=== PATIENT | female | born 2000 | race Hispanic/Latino ===

== ENCOUNTER 2024-03-29 22:08 | Emergency (ER) | payer SELFPAY ==
--- OUTSIDE RECORDS SUMMARY | 2024-03-29 23:26 | XMS REPORT | Continuity of Care Document ---
Author Name Unknown Address [address] [place] [address] thconnect Address [address] [place] [address] [phone] [place] [address] Care Team Providers Care Gas Blender Name Role Phone PCP, PATIENT DOES NOT HAVE A Primary Care Physic karina Unavailable RAVINDER LOPEZ Attending Clinician Unavailable Payers Payer Name Policy Type Policy Number Effective Date Expirati on Date Source [facility] [id number] 2017 00:00:00 Allergies, Adverse Reactions, Alerts Allergy Name Allergy Type Status Severity Reaction(s) Onset Date Inactive Date Treating Clinician Comments Source NO KNOWN ALLERGIE S Drug Class Active [facility] Encounters Start Date/Time End Date/Time Encounter Type Admission Type Attending Clinicians Care Facility Care Department Encounter ID Source 2020-10-07 11:20:00 2020-10-07 09:32:19 Outpatient [facility]AVINDER UP [facility] [id number] [facility] 2020-09-09 11:20:00 2020-09-09 11:20:00 Outpatient [facility] [id number] [facility]
--- NOTE | 2024-03-30 01:09 | EDPHYS ---
Physician Documentation [facility] Name: Patricia Silverio Age: 24 yrs Sex: Female : 2000 Arrival Date: 03/29/2024 Time: 22:08 Bed IW6 Private MD: ED Physician Saeed Espinoza HPI: 03/29 23:00 This 24 yrs old Female presents to ER via Ambulatory with complaints of Knee cp Pain - right. 23:00 The patient presents with an injury, pain, that is acute. cp 23:00 The complaints affect the right knee. Context: the patient can fully bear weight, the cp patient is able to ambulate, with mild difficulty, pain and felt pop while exercising today. Onset: The symptoms/episode began/occurred today. Associated signs and symptoms: The patient has no apparent associated signs or symptoms. Historical: - Allergies: 22:57 No Known Allergies; ha1 - PMHx: 22:57 scoliosis; ha1 - Immunization history:: Adult Immunizations up to date. - Infectious Disease History:: Denies. - Social history:: Smoking status: Patient denies any tobacco usage or history of. ROS: 23:05 MS/extremity: Positive for pain, tenderness, of the right knee, Negative for decreased cp range of motion, deformity, 23:05 Constitutional: Negative for body aches, chills, fever, cp 23:05 Neck: Negative for pain with movement, pain at rest, 23:05 Back: Negative for pain at rest, pain with movement, 23:05 Skin: Negative for cellulitis, rash, 23:05 All other systems are negative, Exam: 23:10 Constitutional: The patient appears in no acute distress, alert, awake, well developed, cp well nourished, 23:10 Respiratory: the patient does not display signs of respiratory distress, cp 23:10 Abdomen/GI: Exam negative for discomfort, distension, guarding, Inspection: abdomen appears normal, 23:10 Back: pain, is absent, ROM is normal, 23:10 Musculoskeletal/extremity: Extremities: noted in the right knee: pain, mild swelling and tenderness noted anterior knee below patella and medial side of patella, There is no evidence of decreased ROM, erythema, ROM: limited passive range of motion due to pain, in the right knee, Perfusion: the extremity is normally perfused throughout, Sensation intact. 23:10 Neuro: Gait: is steady, Vital Signs: 22:40 BP 136 / 97; Pulse 94; Resp 16 S; Temp 97.2; Pulse Ox 100% ; Weight 69.85 kg; Height 5 ha1 ft. 3 in. ; Pain 5/10; 22:40 Body Mass Index 27.28 (69.85 kg, 160.02 cm) ha1 22:40 Pain Scale: Adult ha1 MDM: 22:55 Medical Screening Exam initiated cp 03/30 01:08 Data reviewed: vital signs, nurses notes, and as a result, I will discharge patient. cp 01:08 Differential diagnosis: tendonitis, sprain, strain, fracture. Refusal of service: The cp patient/guardian displays adequate decision making capability and despite a detailed discussion of alternatives, benefits, risks, and consequences refuses: all X-rays. Administered Medications: 01:25 Not Given (Physician Discretion): [id number] mg PO once; may give if not ha1 Disposition: 20:40 Co-signature as Attending Physician, Saeed Espinoza MD I agree with the assessment sp4 and plan of care. I reviewed the patient's care provided by the Advanced Practice Provider and agree with the diagnosis and treatment plan. 03/31 00:27 Chart complete. cp Disposition Summary: 03/30/24 01:09 Discharge Ordered Notes: Location: Home cp Problem: new cp Symptoms: are unchanged cp Condition: Stable cp Diagnosis - Pain in right knee cp Followup: cp - With: Jovon Barcenas MD - When: 5 - 6 days - Reason: right knee pain Discharge Instructions: - Discharge Summary Sheet cp - Elastic Bandage and RICE Therapy cp - How to Use a Knee Brace cp - Acute Knee Pain, Adult cp Forms: - Medication Reconciliation Form cp - Antibiotic Education cp - Prescription Opioid Use cp - Patient Portal Instructions cp - Leadership Thank You Letter cp Prescriptions: - Ibuprofen 800 mg Oral Tablet - take 1 tablet ORAL route every 8 hours As needed take with food; 30 tablet; cp Refills: 0, Product Selection Permitted Signatures: Dispatcher [employer] EDMS Sesar Austin PA PA cp Ayala, Heidy, RN RN 1 Saeed Espinoza MD MD sp4 Corrections: (The following items were deleted from the chart) 03/29 22:56 22:56 Knee Right 3 View+RAD.RAD.BRZ ordered. EDMS EDMS 03/30 01:25 03/29 22:56 Crutches ordered. cp ha1
--- NOTE | 2024-03-30 01:09 | ER ---
Nurse's Notes [facility] Name: Patricia Silverio Age: 24 yrs Sex: Female : 2000 Arrival Date: 03/29/2024 Time: 22:08 Bed IW6 Private MD: Diagnosis: Pain in right knee Presentation: 03/29 22:40 Chief complaint: Patient states: right knee pain after working out. ha1 22:40 Coronavirus screen: Vaccine status: Patient reports being unvaccinated. Ebola Screen: ha1 No symptoms or risks identified at this time. Initial Sepsis Screen: Does the patient meet any 2 criteria? No. Patient's initial sepsis screen is negative. Does the patient have a suspected source of infection? No. Patient's initial sepsis screen is negative. Risk Assessment: Do you want to hurt yourself or someone else? Patient reports no desire to harm self or others. Onset of symptoms was March 29, 2024. 22:40 Method Of Arrival: Ambulatory ha1 22:40 Acuity: LASHANDA 4 ha1 Triage Assessment: 22:57 General: Appears uncomfortable, Behavior is calm, cooperative. Pain: Complains of pain ha1 in lateral aspect of right knee Pain does not radiate. Pain currently is 5 out of 10 on a pain scale. Quality of pain is described as aching, Pain began suddenly. Neuro: Level of Consciousness is awake, alert, obeys commands, Oriented to person, place, time, situation. Cardiovascular: Patient's skin is warm and dry. Respiratory: Airway is patent Respiratory effort is even, unlabored, Respiratory pattern is regular, symmetrical. Historical: - Allergies: 22:57 No Known Allergies; ha1 - PMHx: 22:57 scoliosis; ha1 - Immunization history:: Adult Immunizations up to date. - Infectious Disease History:: Denies. - Social history:: Smoking status: Patient denies any tobacco usage or history of. Screenin/25 00:00 Abuse screen: Denies threats or abuse. Denies injuries from another. Nutritional ha1 screening: No deficits noted. Tuberculosis screening: No symptoms or risk factors identified. 00:00 [facility] ED Fall Risk Assessment (Adult) History of falling in the last 3 months, ha1 including since admission No falls in past 3 months (0 pts) Confusion or Disorientation No (0 pts) Intoxicated or Sedated No (0 pts) Impaired Gait Yes (1 pt) Mobility Assist Device Used Yes (1 pt) Altered Elimination No (0 pt) Score/Fall Risk Level 3 or more points = High Risk Oriented to surroundings, Maintained a safe environment, Hourly rounding (assess needs \T\ fall precautionary measures) done. Assessment: 03/29 23:50 Reassessment: Patient and/or family updated on plan of care and expected duration. Pain ha1 level reassessed. Patient is alert, oriented x 3, equal unlabored respirations, skin warm/dry/pink. 03/30 01:10 Reassessment: patient left before signing discharge papers. ha1 Vital Signs: 03/29 22:40 BP 136 / 97; Pulse 94; Resp 16 S; Temp 97.2; Pulse Ox 100% ; Weight 69.85 kg; Height 5 ha1 ft. 3 in. ; Pain 5/10; 22:40 Body Mass Index 27.28 (69.85 kg, 160.02 cm) ha1 22:40 Pain Scale: Adult ha1 ED Course: 22:14 Patient arrived in ED. im 22:27 Sesar Austin PA is PHCP. cp 22:27 Saeed Espinoza MD is Attending Physician. cp 22:48 Patient has correct armband on for positive identification. ha1 22:48 Arm band placed on right wrist. ha1 22:57 Triage completed. ha1 23:00 Provided Education on: plan of care . ha1 03/30 01:08 Jovon Barcenas MD is Referral Physician. cp 01:10 No provider procedures requiring assistance completed. ha1 01:10 Patient did not have IV access during this emergency room visit. ha1 Administered Medications: : Not Given (Physician Discretion): [id number] mg PO once; may give if not ha1 Medication: 00:00 VIS not applicable for this client. ha1 Outcome: 01:09 Discharge ordered by . cp 01:10 Patient left the ED. ha1 01:10 Discharged to home ambulatory, with family, ha1 01:10 Condition: stable ha1 01:10 Discharge instructions given to patient, family, Instructed on discharge instructions, follow up and referral plans. medication usage, Signatures: Sesar Austin PA PA Enedina Maddox RN RN [address] Corrections: (The following items were deleted from the chart) 07:39 01:39 Patient left the ED. ha1 ha1
[2024-03-30 12:33] VITALS: BP 136/97; TEMP 97.2; O2SAT 100
== END 2024-03-30 01:39 | disposition home or self-care (01) ==
LOC: ER 22:08
DX: M25.561 Pain in right knee (principal)
CPT/HCPCS: 99282